=== PATIENT | male | born 1975 | race Caucasian/White ===

== ENCOUNTER 2017-04-06 12:47 | Emergency (ER) | payer BC ==
[~2017-04-06] VITALS: Ht 190.5 cm; Wt 97.5 kg
--- NOTE | 2017-04-06 15:44 | NUR ---
Patient discharged to home in stable conditon. Written and verbal after care instructions given. Patient verbalizes understanding of instructions. Stressed follow up with pmd or return to ER for worsening s/s.
== END 2017-04-06 15:45 | disposition home or self-care (01) ==
LOC: ER 12:47
DX: J15.9 Unspecified bacterial pneumonia (principal)
CPT/HCPCS: 71010; 99283; A4663